=== PATIENT | female | born 1965 | race Caucasian/White ===

== ENCOUNTER 2016-09-22 15:51 | Emergency (ER) | payer OTHER ==
[~2016-09-22] VITALS: Ht 152.4 cm; Wt 77.1 kg
[2016-09-22 17:51] LABS: EOSINOPHIL (%) 0.2 % (0-5); HEMATOCRIT 37.1 % (36.0-46.0); IMMATURE GRANULOCYTE (%) 0.5 % (0.0-0.7); IMMATURE GRANULOCYTE COUNT 0.1 K/uL; INSTRUMENT ABS NEUTROPHIL CT 9.7 K/uL; LYMPHOCYTE COUNT 1.9 K/uL (1.0-2.8); MCH 32.7 PG (29.0-34.0); MCHC 34.5 G/DL (30.0-36.0); MCV 94.6 FL (83-99); MEAN PLAT.VOLUME 11.4 uM^3 (9.5-12.4); MONOCYTE (%) 8.7 % (3-12); MONOCYTE COUNT 1.1 K/uL (0-0.8); NEUTROPHIL (%) 75.5 % (45-76); NEUTROPHIL COUNT 9.7 K/uL (1.8-6.4); PLATELET COUNT 206 K/uL (156-360); RBC DIS.WIDTH-CV 12.5 % (11.8-14.6); RBC DIS.WIDTH-SD 43.6 % (39-53); RED BLOOD COUNT 3.92 M/uL (3.80-5.20); WHITE BLOOD COUNT 12.8 K/uL (4.1-10.2)
[2016-09-22 17:57] LABS: CHLORIDE 108 mEq/L (99-109); POTASSIUM 3.6 mEq/L (3.7-5.4); SODIUM 143 mEq/L (136-147)
[2016-09-22 17:58] LABS: GLUCOSE 89 mg/dL (70-99)
[2016-09-22 18:00] LABS: ANION GAP 11 MEQ/L (2-14)
[2016-09-22 18:02] LABS: GFR ESTIMATE (CALCULATED) > 59 mL/min/; SERUM ETHYL ALCOHOL < 10 mg/dL
[2016-09-22 18:03] LABS: UREA NITROGEN (BUN) 11 mg/dL (9-23)
[2016-09-22 18:11] LABS: TROP-I INTERPRETATION NEGATIVE; TROPONIN-I < 0.01 ng/mL (0.0-0.30)
[2016-09-22 19:40] LABS: ADD MIUA? YES; BILIRUBIN SMALL; BLOOD MODERATE; COLOR AMBER ((YELLOW)); GLUCOSE (STRIP) NEGATIVE; KETONES NEGATIVE; LEUKOCYTES SMALL; NITRITE NEGATIVE; PROTEIN (STRIP) 100; SPECIFIC GRAVITY 1.024 (1.000-1.030)
[2016-09-22] MEDS ORDERED: PROZAC20 MG PO ×2 (19:41)
[2016-09-22] MEDS ORDERED: TEGRETOL100 MG PO (19:41)
[2016-09-22] MEDS ORDERED: XANAX2 MG PO (19:41)
[2016-09-22] MEDS ORDERED: SEROQUEL200 MG PO (19:42)
[2016-09-22] MEDS ORDERED: PROVENTIL HFA6.7 GM IH (19:42)
[2016-09-22] MEDS ORDERED: PROVENTIL,2.5 MG/3 M IH (19:43)
[2016-09-22 19:52] LABS: ADD MEDTOX COMMENT Y; AMPHETAMINE NEGATIVE (500 ng/mL); BARBITURATES NEGATIVE (200 ng/mL); BENZODIAZEPINES PRESUMPTIVE POSITIVE (150 ng/mL); COCAINE NEGATIVE (150 ng/mL); INTERNAL CONTROLS VALID? YES; METHADONE NEGATIVE (200 ng/mL); METHAMPHETAMINE NEGATIVE (500 ng/mL); OPIATES (MORPHINE) NEGATIVE (100 ng/mL); OXYCODONE NEGATIVE (100 ng/mL); PHENCYCLIDINE NEGATIVE (25 ng/mL); PROPOXYPHENE NEGATIVE (300 ng/mL); THC CANNABINOIDS PRESUMPTIVE POSITIVE (50 ng/mL); TRICYCLIC ANTIDEPRESSANTS NEGATIVE (300 ng/mL)
[2016-09-22 20:16] LABS: CASTS NONE SEEN /LPF; CRYSTALS PRESENT; MUCUS TRACE /LPF; UCUL ADDED? YES; WHITE BLOOD CELLS 20-30 /HPF (0-5)
[2016-09-22 20:17] LABS: AMORPHOUS URATES CRYSTALS 2+; BACTERIA 2+ /HPF; EPITHELIAL CELLS 2+ /HPF
[2016-09-22 20:23] LABS: BENZODIAZEPINES QUANT VALUE 0 NG/ML; BENZODIAZEPINES, URINE SCREEN Negative (200 ng/mL)
[2016-09-22] MEDS ORDERED: KEFLEX500 MG PO (22:59)
[2016-09-23 08:00] VITALS: BP 131/50
== END 2016-09-23 08:00 ==
LOC: EME 15:51
PROVIDERS: Emergency Medicine
DX: F33.2 Major depressive disorder, recurrent severe without psychotic features (principal); R45.851 Suicidal ideations; R07.9 Chest pain, unspecified; F41.9 Anxiety disorder, unspecified; I10 Essential (primary) hypertension; J44.9 Chronic obstructive pulmonary disease, unspecified; F17.200 Nicotine dependence, unspecified, uncomplicated; Z88.0 Allergy status to penicillin
CPT/HCPCS: 80048; 81003; 84484; 84999; 85025; 87077; 87086; 87186; 90837; 93005; 99281; 99285; G0480; J7030

== ENCOUNTER 2016-10-13 16:34 | Inpatient (IN) | payer OTHER ==
[~2016-10-13] VITALS: Ht 152.4 cm; Wt 74.0 kg
[~2016-10-13 16:34] MED LIST: KEFLEX500 MG PO; PROVENTIL HFA6.7 GM IH; PROVENTIL,2.5 MG/3 M IH; PROZAC20 MG PO; SEROQUEL200 MG PO; TEGRETOL100 MG PO; XANAX2 MG PO
[2016-10-13] MEDS ORDERED: CARBAMAZEPINE100 M1 PO (17:31)
[2016-10-13] MEDS ORDERED: GABAPENTIN400 MG PO (17:31)
[2016-10-13] MEDS ORDERED: XANAX1 MG PO (17:32)
[2016-10-13] MEDS ORDERED: LEVOTHYROXINE75 MCG PO (17:32)
[2016-10-13] MEDS ORDERED: SEROQUEL300 MG PO (17:33)
[2016-10-13] MEDS ORDERED: FLUOXETINE HCL40 MG PO (17:35)
[2016-10-13 17:48] LABS: HEMATOCRIT 35.1 % (36.0-46.0); MCH 33.1 PG (29.0-34.0); MCHC 33.3 G/DL (30.0-36.0); MCV 99.2 FL (83-99); MEAN PLAT.VOLUME 11.1 uM^3 (9.5-12.4); PLATELET COUNT 211 K/uL (156-360); RBC DIS.WIDTH-CV 12.9 % (11.8-14.6); RBC DIS.WIDTH-SD 46.4 % (39-53); RED BLOOD COUNT 3.54 M/uL (3.80-5.20); WHITE BLOOD COUNT 10.2 K/uL (4.1-10.2)
[2016-10-13 18:06] LABS: TROP-I INTERPRETATION NEGATIVE; TROPONIN-I < 0.01 ng/mL (0.0-0.30)
[2016-10-13 18:23] LABS: CHLORIDE 105 mEq/L (99-109); POTASSIUM 3.3 mEq/L (3.7-5.4); SODIUM 141 mEq/L (136-147)
[2016-10-13 18:25] LABS: GLUCOSE 103 mg/dL (70-99)
[2016-10-13 18:26] LABS: ANION GAP 15 MEQ/L (2-14)
[2016-10-13 18:28] LABS: GFR ESTIMATE (CALCULATED) > 59 mL/min/
[2016-10-13 18:29] LABS: UREA NITROGEN (BUN) 10 mg/dL (9-23)
[2016-10-13 19:48] LABS: ADD MIUA? YES; BILIRUBIN SMALL; BLOOD MODERATE; COLOR AMBER ((YELLOW)); GLUCOSE (STRIP) NEGATIVE; KETONES 5; LEUKOCYTES MODERATE; NITRITE NEGATIVE; PROTEIN (STRIP) 100; SPECIFIC GRAVITY 1.026 (1.000-1.030)
[2016-10-13 19:56] LABS: ADD MEDTOX COMMENT Y; AMPHETAMINE NEGATIVE (500 ng/mL); BARBITURATES NEGATIVE (200 ng/mL); BENZODIAZEPINES PRESUMPTIVE POSITIVE (150 ng/mL); COCAINE NEGATIVE (150 ng/mL); INTERNAL CONTROLS VALID? YES; METHADONE NEGATIVE (200 ng/mL); METHAMPHETAMINE NEGATIVE (500 ng/mL); OPIATES (MORPHINE) NEGATIVE (100 ng/mL); OXYCODONE NEGATIVE (100 ng/mL); PHENCYCLIDINE NEGATIVE (25 ng/mL); PROPOXYPHENE NEGATIVE (300 ng/mL); THC CANNABINOIDS PRESUMPTIVE POSITIVE (50 ng/mL); TRICYCLIC ANTIDEPRESSANTS PRESUMPTIVE POSITIVE (300 ng/mL)
[2016-10-13 20:06] LABS: BACTERIA 2+ /HPF; CASTS PRESENT /LPF; MUCUS 1+ /LPF; RED BLOOD CELLS 15-20 /HPF (0-5); UCUL ADDED? YES
[2016-10-13 20:07] LABS: EPITHELIAL CELLS 2+ /HPF
[2016-10-13 20:29] LABS: BENZODIAZEPINES, URINE SCREEN POSITIVE (200 ng/mL)
[2016-10-13 21:56] VITALS: BP 101/63
[2016-10-14 03:05] VITALS: BP 110/71
[2016-10-14 06:11] LABS: MCH 32.2 PG (29.0-34.0); MCHC 32.7 G/DL (30.0-36.0); MCV 98.5 FL (83-99); MEAN PLAT.VOLUME 11.2 uM^3 (9.5-12.4); PLATELET COUNT 215 K/uL (156-360); RBC DIS.WIDTH-CV 12.9 % (11.8-14.6); RBC DIS.WIDTH-SD 46.3 % (39-53); RED BLOOD COUNT 3.35 M/uL (3.80-5.20); WHITE BLOOD COUNT 6.1 K/uL (4.1-10.2)
[2016-10-14 06:37] LABS: ANION GAP 8 MEQ/L (2-14); CHLORIDE 106 MEQ/L (99-109); GFR ESTIMATE (CALCULATED) > 59 mL/min/; SAMPLE HEMOLYSIS CHECK 0; SAMPLE ICTERIC CHECK 0; SAMPLE LIPEMIA CHECK 0; SODIUM 138 MEQ/L (136-147); UREA NITROGEN (BUN) 11 mg/dL (9-23)
[2016-10-14 06:39] LABS: GLUCOSE 216 mg/dL (70-99)
[2016-10-14 07:30] VITALS: BP 96/63
[2016-10-14] MEDS ORDERED: CEFTIN500 MG PO (12:48)
[2016-10-14] MEDS ORDERED: AZITHROMYCIN500 M1 PO (12:48)
[2016-10-14] MEDS ORDERED: PREDNISONE10 MG PO (12:50)
[2016-10-14] MEDS ORDERED: DUONEB 2.5-0.5 M3 ML AEROSOL (12:50)
[2016-10-14] MEDS ORDERED: SPIRIVA1 INHALATI IH (19:31)
== END 2016-10-14 18:14 | DRG 190 ==
LOC: EME 16:34 → EDOF 20:41 → ENRESERV 20:44 → 5SOUTH 21:55
PROVIDERS: Emergency Medicine; Hospitalist
DX: J44.0 Chronic obstructive pulmonary disease with (acute) lower respiratory infection (principal); J18.9 Pneumonia, unspecified organism; N39.0 Urinary tract infection, site not specified; F33.9 Major depressive disorder, recurrent, unspecified; R45.851 Suicidal ideations; I10 Essential (primary) hypertension; J44.1 Chronic obstructive pulmonary disease with (acute) exacerbation; R09.02 Hypoxemia; F43.10 Post-traumatic stress disorder, unspecified; G40.909 Epilepsy, unspecified, not intractable, without status epilepticus; F17.210 Nicotine dependence, cigarettes, uncomplicated; Z59.0 Homelessness; Z91.5 Personal history of self-harm; Z87.01 Personal history of pneumonia (recurrent); Z88.0 Allergy status to penicillin; Z88.5 Allergy status to narcotic agent
CPT/HCPCS: 71020; 71275; 80048; 81003; 84484; 84999; 85027; 87040; 87086; 87186; 90732; 90839; 93005; 94640; 94640 76; 94799; 99202; 99281; 99285; G0009; J0456; J0696; J1650; J2930; J7050; J7512; J7644

== ENCOUNTER 2016-10-14 18:00 | Inpatient (IN) | payer OTHER ==
[~2016-10-14] VITALS: Ht 152.4 cm; Wt 74.0 kg
[~2016-10-14 18:00] MED LIST changes: +AZITHROMYCIN500 M1 PO; +CARBAMAZEPINE100 M1 PO; +CEFTIN500 MG PO; +DUONEB 2.5-0.5 M3 ML AEROSOL; +FLUOXETINE HCL40 MG PO; +GABAPENTIN400 MG PO; +LEVOTHYROXINE75 MCG PO; +PREDNISONE10 MG PO; +SEROQUEL300 MG PO; +XANAX1 MG PO
[2016-10-14 18:29] VITALS: BP 106/63
[2016-10-14] MEDS ORDERED: SPIRIVA1 INHALATI IH (19:31)
[2016-10-15 07:36] VITALS: BP 113/56
[2016-10-15 15:59] VITALS: BP 108/77
[2016-10-16 07:34] VITALS: BP 138/61
[2016-10-16 15:42] VITALS: BP 130/70
[2016-10-17 07:24] VITALS: BP 140/77
[2016-10-17] MEDS ORDERED: QUETIAPINE FUM200 MG PO (10:01)
[2016-10-17] MEDS ORDERED: ALPRAZOLAM0.5 MG PO (10:01)
[2016-10-17] MEDS ORDERED: CEFTIN500 MG PO (10:01)
[2016-10-17] MEDS ORDERED: FLUOXETINE HCL20 MG PO ×2 (10:01)
[2016-10-17] MEDS ORDERED: AZITHROMYCIN500 M1 PO (10:01)
[2016-10-17] MEDS ORDERED: GABAPENTIN100 MG PO (10:01)
[2016-10-17] MEDS ORDERED: LEVOTHYROXINE75 MCG PO (10:03)
[2016-10-17] MEDS ORDERED: PREDNISONE10 MG PO (10:03)
== END 2016-10-17 10:59 | disposition home or self-care (01) | DRG 885 ==
LOC: 1WEST 18:00 → ENRESERV 18:03 → 1WEST 18:26
DX: F33.1 Major depressive disorder, recurrent, moderate (principal); R45.851 Suicidal ideations; J44.0 Chronic obstructive pulmonary disease with (acute) lower respiratory infection; J18.9 Pneumonia, unspecified organism; N39.0 Urinary tract infection, site not specified; F43.10 Post-traumatic stress disorder, unspecified; F12.10 Cannabis abuse, uncomplicated; F90.9 Attention-deficit hyperactivity disorder, unspecified type; Z59.0 Homelessness; G40.909 Epilepsy, unspecified, not intractable, without status epilepticus; E03.9 Hypothyroidism, unspecified; I10 Essential (primary) hypertension; F17.200 Nicotine dependence, unspecified, uncomplicated; Z91.410 Personal history of adult physical and sexual abuse; Z62.810 Personal history of physical and sexual abuse in childhood
CPT/HCPCS: 94640; 94640 76; J7512

== ENCOUNTER 2016-10-30 16:50 | Inpatient (IN) | payer OTHER ==
[~2016-10-30] VITALS: Ht 152.4 cm; Wt 78.4 kg
[~2016-10-30 16:50] MED LIST changes: +ALPRAZOLAM0.5 MG PO; +FLUOXETINE HCL20 MG PO; +GABAPENTIN100 MG PO; +QUETIAPINE FUM200 MG PO; +SPIRIVA1 INHALATI IH
[2016-10-30 17:15] LABS: HEMATOCRIT 37.6 % (36.0-46.0); MCH 31.9 PG (29.0-34.0); MCHC 32.7 G/DL (30.0-36.0); MCV 97.7 FL (83-99); MEAN PLAT.VOLUME 10.7 uM^3 (9.5-12.4); PLATELET COUNT 184 K/uL (156-360); RBC DIS.WIDTH-CV 13.3 % (11.8-14.6); RBC DIS.WIDTH-SD 47.8 % (39-53); RED BLOOD COUNT 3.85 M/uL (3.80-5.20); WHITE BLOOD COUNT 7.5 K/uL (4.1-10.2)
[2016-10-30 17:23] LABS: CHLORIDE 109 mEq/L (99-109); POTASSIUM 3.6 mEq/L (3.7-5.4); SODIUM 143 mEq/L (136-147)
[2016-10-30 17:25] LABS: GLUCOSE 115 mg/dL (70-99)
[2016-10-30 17:27] LABS: ANION GAP 13 MEQ/L (2-14)
[2016-10-30 17:29] LABS: GFR ESTIMATE (CALCULATED) > 59 mL/min/
[2016-10-30 17:30] LABS: UREA NITROGEN (BUN) 13 mg/dL (9-23)
[2016-10-30 17:35] LABS: TROP-I INTERPRETATION NEGATIVE; TROPONIN-I < 0.01 ng/mL (0.0-0.30)
[2016-10-30 17:37] LABS: QUANTITATIVE HCG < 4.0 MIU/ML
[2016-10-30 17:59] LABS: ADD MIUA? YES; BILIRUBIN NEGATIVE; BLOOD MODERATE; COLOR YELLOW ((YELLOW)); GLUCOSE (STRIP) NEGATIVE; KETONES NEGATIVE; LEUKOCYTES MODERATE; NITRITE NEGATIVE; PROTEIN (STRIP) NEGATIVE; SPECIFIC GRAVITY 1.021 (1.000-1.030); UROBILINOGEN 0.2 MG/DL (0.2-1.0)
[2016-10-30 18:03] LABS: BACTERIA RARE /HPF; EPITHELIAL CELLS 1+ /HPF; HYALINE CASTS 0-5 /LPF; MUCUS TRACE /LPF; UCUL ADDED? YES
[2016-10-30] MEDS ORDERED: XANAX XR1 MG PO (21:57)
[2016-10-31] VITALS (10 sets, daily range): BP systolic 98–122; BP diastolic 51–76
[2016-10-31 00:08] LABS: TROP-I INTERPRETATION NEGATIVE; TROPONIN-I < 0.01 ng/mL (0.0-0.30)
[2016-10-31 06:25] LABS: HEMATOCRIT 38.6 % (36.0-46.0); MCH 31.8 PG (29.0-34.0); MCHC 32.9 G/DL (30.0-36.0); MCV 96.7 FL (83-99); MEAN PLAT.VOLUME 11.1 uM^3 (9.5-12.4); PLATELET COUNT 199 K/uL (156-360); RBC DIS.WIDTH-SD 46.7 % (39-53); RED BLOOD COUNT 3.99 M/uL (3.80-5.20); WHITE BLOOD COUNT 6.9 K/uL (4.1-10.2)
[2016-10-31 06:40] LABS: CHLORIDE 110 mEq/L (99-109); SODIUM 141 mEq/L (136-147)
[2016-10-31 06:42] LABS: GLUCOSE 149 mg/dL (70-99)
[2016-10-31 06:44] LABS: ANION GAP 11 MEQ/L (2-14); POTASSIUM 4.6 mEq/L (3.7-5.4); TOTAL BILIRUBIN 0.1 mg/dL (0.0-1.0)
[2016-10-31 06:45] LABS: TROP-I INTERPRETATION NEGATIVE; TROPONIN-I < 0.01 ng/mL (0.0-0.30)
[2016-10-31 06:46] LABS: ALKALINE PHOSPHATASE 77 IU/L (3-129); GFR ESTIMATE (CALCULATED) > 59 mL/min/
[2016-10-31 06:47] LABS: UREA NITROGEN (BUN) 12 mg/dL (9-23)
[2016-10-31 08:50] LABS: INTERNAL CONTROL VALID? YES
[2016-11-01 07:18] VITALS: BP 108/67
[2016-11-01] MEDS ORDERED: GABAPENTIN100 MG PO (11:13)
[2016-11-01] MEDS ORDERED: LEVOTHYROXINE75 MCG PO (11:13)
[2016-11-01] MEDS ORDERED: PROVENTIL,2.5 MG/3 M IH (11:13)
[2016-11-01] MEDS ORDERED: CARBAMAZEPINE100 M1 PO (11:13)
[2016-11-01] MEDS ORDERED: CEFDINIR300 MG PO (11:13)
[2016-11-01] MEDS ORDERED: SPIRIVA1 INHALATI IH (11:13)
[2016-11-01] MEDS ORDERED: PREDNISONE10 MG PO (11:13)
[2016-11-01] MEDS ORDERED: FLUOXETINE HCL20 MG PO ×2 (11:21)
[2016-11-01] MEDS ORDERED: XANAX XR1 MG PO (11:21)
[2016-11-01] MEDS ORDERED: QUETIAPINE FUM200 MG PO (11:21)
[2016-11-01 11:34] VITALS: BP 103/58
[2016-11-01] MEDS ORDERED: INCRUSE ELLI62.5 MCG IH (12:56)
[2016-11-01] MEDS ORDERED: PROAIR HFA8.5 GM IH (12:56)
[2016-11-01 15:39] VITALS: BP 107/55
== END 2016-11-01 17:00 | disposition home or self-care (01) | DRG 190 ==
LOC: EME 16:50 → EDOF 20:39 → ENRESERV 20:51 → EDOF 10-31 09:23 → ENRESERV 10-31 09:25 → 5EAST 10-31 13:50 → ENPENDDIS 11-01 → 5EAST 11-01 17:00
PROVIDERS: Emergency Medicine; Internal Medicine
DX: J44.0 Chronic obstructive pulmonary disease with (acute) lower respiratory infection (principal); J18.9 Pneumonia, unspecified organism; J44.1 Chronic obstructive pulmonary disease with (acute) exacerbation; E87.6 Hypokalemia; I10 Essential (primary) hypertension; F31.9 Bipolar disorder, unspecified; F41.9 Anxiety disorder, unspecified; E03.9 Hypothyroidism, unspecified; F17.210 Nicotine dependence, cigarettes, uncomplicated; Z23 Encounter for immunization; Z88.0 Allergy status to penicillin; Z88.5 Allergy status to narcotic agent
CPT/HCPCS: 71010; 80048; 80053; 81003; 83605; 84484; 84702; 85027; 85379; 87040; 87086; 87449; 90686; 93005; 94640; 94640 76; 99202; 99281; 99285; J0456; J0696; J1100; J1644; J2930; J7050; J7644

== ENCOUNTER 2016-11-22 16:25 | Observation (INO) | payer OTHER ==
[~2016-11-22] VITALS: Ht 152.4 cm; Wt 78.4 kg
[~2016-11-22 16:25] MED LIST changes: +CEFDINIR300 MG PO; +INCRUSE ELLI62.5 MCG IH; +PROAIR HFA8.5 GM IH; +XANAX XR1 MG PO
[2016-11-22 17:15] LABS: MCH 32.4 PG (29.0-34.0); MCV 98.1 FL (83-99); MEAN PLAT.VOLUME 11.1 uM^3 (9.5-12.4); PLATELET COUNT 185 K/uL (156-360); RBC DIS.WIDTH-CV 14.3 % (11.8-14.6); RBC DIS.WIDTH-SD 52.2 % (39-53); RED BLOOD COUNT 3.77 M/uL (3.80-5.20)
[2016-11-22 17:21] LABS: INTER. NORMALIZED RATIO 0.9; PROTHROMBIN TIME 10.1 SEC (10.2-12.9)
[2016-11-22 17:23] LABS: PTT 27.4 SEC (25-37)
[2016-11-22 17:28] LABS: CHLORIDE 108 mEq/L (99-109); SODIUM 143 mEq/L (136-147)
[2016-11-22 17:30] LABS: GLUCOSE 62 mg/dL (70-99)
[2016-11-22 17:31] LABS: ANION GAP 10 MEQ/L (2-14)
[2016-11-22 17:34] LABS: GFR ESTIMATE (CALCULATED) > 59 mL/min/
[2016-11-22 17:35] LABS: UREA NITROGEN (BUN) 14 mg/dL (9-23)
[2016-11-22 17:40] LABS: TROP-I INTERPRETATION NEGATIVE; TROPONIN-I < 0.01 ng/mL (0.0-0.30)
[2016-11-22] MEDS ORDERED: INCRUSE ELLI62.5 MCG IH (20:13)
[2016-11-22] MEDS ORDERED: GABAPENTIN100 MG PO (20:15)
[2016-11-22] MEDS ORDERED: GABAPENTIN400 MG PO (20:16)
[2016-11-22] MEDS ORDERED: FLUOXETINE HCL40 MG PO (20:17)
[2016-11-22] MEDS ORDERED: SEROQUEL300 MG PO (20:18)
[2016-11-22] MEDS ORDERED: ACID REDUCER 1150 MG PO (20:21)
[2016-11-22] MEDS ORDERED: ATARAX,VISTARIL25 MG PO (20:21)
[2016-11-22] MEDS ORDERED: PREDNISONE50 MG PO (20:21)
[2016-11-22] MEDS ORDERED: BAYER BACK & B1 EACH PO (20:22)
[2016-11-22] MEDS ORDERED: XANAX XR3 MG PO (20:23)
[2016-11-22 21:38] LABS: POINT-OF-CARE METER ID UU13113702
[2016-11-22 22:13] LABS: HDL CHOLESTEROL 90 MG/DL (Desirable>=50); LDL CHOLESTEROL 118 mg/dL (Desirable<100); NON-HDL CHOLESTEROL 139 mg/dL (Desirable<160); TOTAL CHOLESTEROL 229 mg/dL (Desirable<200); TRIGLYCERIDES 103 MG/DL (Normal: <150)
[2016-11-22 22:45] LABS: SERUM ETHYL ALCOHOL < 10 mg/dL
[2016-11-23 00:08] VITALS: BP 121/83; BP 99/54
[2016-11-23 03:54] VITALS: BP 120/69
[2016-11-23 07:39] VITALS: BP 126/75
[2016-11-23] MEDS ORDERED: SPIRIVA RESPIMAT4 GM IH (10:57)
[2016-11-23] MEDS ORDERED: PREDNISONE10 MG PO ×2 (10:57→10:59)
[2016-11-23] MEDS ORDERED: ALLERGY25 M2 PO (10:57)
[2016-11-23] MEDS ORDERED: PEPCID40 MG PO (10:57)
== END 2016-11-23 13:05 | disposition home or self-care (01) ==
LOC: EME 16:25 → 5SOUTH 21:16 → EDOF 21:16 → ENRESERV 21:20 → EDOF 22:01 → 5SOUTH 23:19
PROVIDERS: Emergency Medicine; Hospitalist
DX: T78.3XXA Angioneurotic edema, initial encounter (principal); R20.0 Anesthesia of skin; J44.9 Chronic obstructive pulmonary disease, unspecified; F10.11 Alcohol abuse, in remission; F19.11 Other psychoactive substance abuse, in remission; E03.9 Hypothyroidism, unspecified; F32.9 Major depressive disorder, single episode, unspecified; F41.9 Anxiety disorder, unspecified; Z86.69 Personal history of other diseases of the nervous system and sense organs; F17.200 Nicotine dependence, unspecified, uncomplicated; Z82.3 Family history of stroke; Z88.5 Allergy status to narcotic agent; Z88.0 Allergy status to penicillin
CPT/HCPCS: 70450; 70551; 71010; 80048; 80061; 80306 90; 81003; 82948; 83036; 84484; 85027; 85610; 85730; 93005; 94640; 99202; 99281; 99285; G0378; G0480; J1200; J1650; J2930; S0028

== ENCOUNTER 2017-02-04 00:42 | Emergency (ER) | payer OTHER ==
[~2017-02-04] VITALS: Ht 152.4 cm; Wt 75.2 kg
[~2017-02-04 00:42] MED LIST changes: +ACID REDUCER 1150 MG PO; +ALLERGY25 M2 PO; +ATARAX,VISTARIL25 MG PO; +BAYER BACK & B1 EACH PO; +PEPCID40 MG PO; +PREDNISONE50 MG PO; +SPIRIVA RESPIMAT4 GM IH; +XANAX XR3 MG PO
[2017-02-04] MEDS ORDERED: ERYTHROMYC1 APPLICAT LEFT EYE (01:38)
[2017-02-04 01:46] VITALS: BP 121/70
== END 2017-02-04 01:47 ==
LOC: EME → EDBD 00:42 → EME 01:47
DX: S05.02XA Injury of conjunctiva and corneal abrasion without foreign body, left eye, initial encounter (principal); X58.XXXA Exposure to other specified factors, initial encounter; Z88.0 Allergy status to penicillin; Z88.5 Allergy status to narcotic agent
CPT/HCPCS: 99281; 99283

== ENCOUNTER 2017-02-14 12:42 | Inpatient (IN) | payer OTHER ==
[~2017-02-14] VITALS: Ht 152.4 cm; Wt 75.0 kg
[~2017-02-14 12:42] MED LIST changes: +ERYTHROMYC1 APPLICAT LEFT EYE
[2017-02-14 14:45] LABS: BASOPHIL (%) 0.3 % (0-1); EOSINOPHIL (%) 0.8 % (0-5); EOSINOPHIL COUNT 0.1 K/uL (0-0.3); HEMATOCRIT 37.3 % (36.0-46.0); HEMOGLOBIN 12.9 G/DL (11.9-15.5); IMMATURE GRANULOCYTE (%) 0.3 % (0.0-0.7); LYMPHOCYTE (%) 12.5 % (15-42); LYMPHOCYTE COUNT 1.8 K/uL (1.0-2.8); MCH 32.3 PG (29.0-34.0); MCHC 34.6 G/DL (30.0-36.0); MCV 93.5 FL (83-99); MONOCYTE (%) 10.7 % (3-12); MONOCYTE COUNT 1.5 K/uL (0-0.8); NEUTROPHIL (%) 75.4 % (45-76); NEUTROPHIL COUNT 10.5 K/uL (1.8-6.4); PLATELET COUNT 185 K/uL (156-360); RBC DIS.WIDTH-SD 41.4 % (39-53); RED BLOOD COUNT 3.99 M/uL (3.80-5.20)
[2017-02-14 14:53] LABS: CHLORIDE 102 mEq/L (99-109); POTASSIUM 3.6 mEq/L (3.7-5.4); SODIUM 138 mEq/L (136-147)
[2017-02-14 14:55] LABS: GLUCOSE 81 mg/dL (70-99)
[2017-02-14 14:58] LABS: CREATININE 0.8 mg/dL (0.6-1.3); GFR ESTIMATE (CALCULATED) > 59 mL/min/
[2017-02-14 14:59] LABS: UREA NITROGEN (BUN) 16 mg/dL (9-23)
[2017-02-14] MEDS ORDERED: CARBAMAZEPINE100 MG PO (17:22)
[2017-02-14] MEDS ORDERED: ADVIL,NUPRIN,M200 MG PO (17:23)
[2017-02-14] MEDS ORDERED: TUMS ULTRA1000 MG PO (17:23)
[2017-02-14] MEDS ORDERED: SYNTHROID75 MCG PO (17:23)
[2017-02-14] MEDS ORDERED: BACTRIM,SEPT1 TABLET PO (17:24)
[2017-02-14] MEDS ORDERED: FLUOXETINE HCL20 MG PO (17:24)
[2017-02-14 19:53] VITALS: BP 98/59
[2017-02-15] VITALS (8 sets, daily range): BP systolic 84–128; BP diastolic 44–74
[2017-02-15 05:19] LABS: HEMATOCRIT 30.6 % (36.0-46.0); MCH 31.4 PG (29.0-34.0); MCHC 32.7 G/DL (30.0-36.0); MCV 96.2 FL (83-99); PLATELET COUNT 155 K/uL (156-360); RBC DIS.WIDTH-CV 12.4 % (11.8-14.6); RBC DIS.WIDTH-SD 43.9 % (39-53); WHITE BLOOD COUNT 11.4 K/uL (4.1-10.2)
[2017-02-15 05:22] LABS: RED BLOOD COUNT 3.18 M/uL (3.80-5.20)
[2017-02-15 05:43] LABS: CHLORIDE 113 MEQ/L (99-109); GFR ESTIMATE (CALCULATED) > 59 mL/min/; GLUCOSE 89 mg/dL (70-99); POTASSIUM 4.2 MEQ/L (3.7-5.4); SODIUM 141 MEQ/L (136-147); UREA NITROGEN (BUN) 16 mg/dL (9-23)
[2017-02-15 21:00] LABS: STOOL OCCULT BLD 1ST SPECIMEN NEGATIVE
[2017-02-16 00:07] VITALS: BP 102/58
[2017-02-16 03:43] VITALS: BP 110/64
[2017-02-16 05:31] LABS: BASOPHIL (%) 0.4 % (0-1); EOSINOPHIL (%) 2.4 % (0-5); EOSINOPHIL COUNT 0.2 K/uL (0-0.3); HEMATOCRIT 28.9 % (36.0-46.0); HEMOGLOBIN 9.4 G/DL (11.9-15.5); IMMATURE GRANULOCYTE (%) 0.8 % (0.0-0.7); LYMPHOCYTE (%) 24.4 % (15-42); MCH 31.3 PG (29.0-34.0); MCHC 32.5 G/DL (30.0-36.0); MCV 96.3 FL (83-99); MONOCYTE (%) 13.6 % (3-12); MONOCYTE COUNT 1.1 K/uL (0-0.8); NEUTROPHIL (%) 58.4 % (45-76); NEUTROPHIL COUNT 4.7 K/uL (1.8-6.4); PLATELET COUNT 176 K/uL (156-360); RBC DIS.WIDTH-CV 12.6 % (11.8-14.6); RBC DIS.WIDTH-SD 44.4 % (39-53)
[2017-02-16 06:09] LABS: CHLORIDE 116 MEQ/L (99-109); CREATININE 1.2 MG/DL (0.6-1.3); GFR ESTIMATE (CALCULATED) 50 mL/min/; GLUCOSE 86 mg/dL (70-99); POTASSIUM 4.2 MEQ/L (3.7-5.4); SODIUM 144 MEQ/L (136-147); UREA NITROGEN (BUN) 12 mg/dL (9-23)
[2017-02-16 08:00] VITALS: BP 127/63
[2017-02-16 15:43] VITALS: BP 123/72
[2017-02-17] VITALS: BP 100/62
[2017-02-17 07:00] LABS: VANCOMYCIN, TROUGH 17.5 MCG/ML (10-20)
[2017-02-17 07:23] LABS: HEMATOCRIT 33.8 % (36.0-46.0); HEMOGLOBIN 10.8 G/DL (11.9-15.5); MCH 31.4 PG (29.0-34.0); MCV 98.3 FL (83-99); PLATELET COUNT 198 K/uL (156-360); RBC DIS.WIDTH-CV 12.5 % (11.8-14.6); RBC DIS.WIDTH-SD 45.1 % (39-53); RED BLOOD COUNT 3.44 M/uL (3.80-5.20); WHITE BLOOD COUNT 9.4 K/uL (4.1-10.2)
[2017-02-17 07:35] LABS: CHLORIDE 114 MEQ/L (99-109); CREATININE 1.1 MG/DL (0.6-1.3); GFR ESTIMATE (CALCULATED) 55 mL/min/; GLUCOSE 84 mg/dL (70-99); POTASSIUM 3.8 MEQ/L (3.7-5.4); SODIUM 142 MEQ/L (136-147); UREA NITROGEN (BUN) 13 mg/dL (9-23)
[2017-02-17 07:38] VITALS: BP 127/68
[2017-02-17 23:22] VITALS: BP 124/69
[2017-02-18 06:40] LABS: BASOPHIL (%) 0.3 % (0-1); EOSINOPHIL (%) 1.7 % (0-5); EOSINOPHIL COUNT 0.2 K/uL (0-0.3); HEMATOCRIT 29.5 % (36.0-46.0); HEMOGLOBIN 9.8 G/DL (11.9-15.5); LYMPHOCYTE COUNT 1.3 K/uL (1.0-2.8); MCH 31.9 PG (29.0-34.0); MCHC 33.2 G/DL (30.0-36.0); MCV 96.1 FL (83-99); NEUTROPHIL COUNT 6.7 K/uL (1.8-6.4); PLATELET COUNT 208 K/uL (156-360); RBC DIS.WIDTH-CV 12.6 % (11.8-14.6); RBC DIS.WIDTH-SD 44.3 % (39-53); RED BLOOD COUNT 3.07 M/uL (3.80-5.20); WHITE BLOOD COUNT 9.3 K/uL (4.1-10.2)
[2017-02-18 07:00] VITALS: BP 130/70
[2017-02-18 07:06] LABS: CHLORIDE 114 MEQ/L (99-109); CREATININE 1.2 MG/DL (0.6-1.3); GFR ESTIMATE (CALCULATED) 50 mL/min/; GLUCOSE 87 mg/dL (70-99); POTASSIUM 4.2 MEQ/L (3.7-5.4); SODIUM 144 MEQ/L (136-147); UREA NITROGEN (BUN) 11 mg/dL (9-23); VANCOMYCIN, TROUGH 15.9 MCG/ML (10-20)
[2017-02-18] MEDS ORDERED: BACTRIM,SEPT1 TABLET PO (11:34)
== END 2017-02-18 13:27 | DRG 602 ==
LOC: EME 12:42 → EDOF 15:18 → 5SOUTH 15:18 → ENRESERV 15:23 → 5SOUTH 19:26
PROVIDERS: Emergency Medicine; Hospitalist; Internal Medicine
PROC: 0H9BXZZ Drainage of Right Upper Arm Skin, External Approach (ICD-10-PCS; principal; 2017-02-14)
DX: L02.411 Cutaneous abscess of right axilla (principal); J18.9 Pneumonia, unspecified organism; D64.9 Anemia, unspecified; D69.59 Other secondary thrombocytopenia; E83.51 Hypocalcemia; R64 Cachexia; R59.1 Generalized enlarged lymph nodes; F32.9 Major depressive disorder, single episode, unspecified; E03.9 Hypothyroidism, unspecified; F41.9 Anxiety disorder, unspecified; G40.909 Epilepsy, unspecified, not intractable, without status epilepticus; Z87.891 Personal history of nicotine dependence; Z22.322 Carrier or suspected carrier of Methicillin resistant Staphylococcus aureus; Z68.32 Body mass index [BMI] 32.0-32.9, adult
CPT/HCPCS: 80048; 80202; 82272; 83605; 85025; 85027; 87040; 87070; 87075; 87205; 87641; 99281; 99285; J0456; J1650; J1885; J2060; J2270; J2405; J2543; J3370; J7030; J7050

== ENCOUNTER 2017-03-15 00:04 | Inpatient (IN) | payer OTHER ==
[~2017-03-15] VITALS: Ht 152.4 cm; Wt 75.2 kg
[~2017-03-15 00:04] MED LIST changes: +ADVIL,NUPRIN,M200 MG PO; +BACTRIM,SEPT1 TABLET PO; +CARBAMAZEPINE100 MG PO; +SYNTHROID75 MCG PO; +TUMS ULTRA1000 MG PO
[2017-03-15 01:01] LABS: HEMOGLOBIN 12.6 G/DL (11.9-15.5); MCH 32.1 PG (29.0-34.0); MCHC 33.2 G/DL (30.0-36.0); MCV 96.9 FL (83-99); PLATELET COUNT 166 K/uL (156-360); RBC DIS.WIDTH-CV 14.1 % (11.8-14.6); RBC DIS.WIDTH-SD 50.3 % (39-53); RED BLOOD COUNT 3.92 M/uL (3.80-5.20); WHITE BLOOD COUNT 8.3 K/uL (4.1-10.2)
[2017-03-15 01:13] LABS: ALBUMIN 4.4 g/dL (3.2-4.8); CHLORIDE 110 mEq/L (99-109); POTASSIUM 3.7 mEq/L (3.7-5.4); SODIUM 145 mEq/L (136-147)
[2017-03-15 01:15] LABS: GLUCOSE 102 mg/dL (70-99); TOTAL PROTEIN 7.5 g/dL (6.4-8.3)
[2017-03-15 01:17] LABS: TOTAL BILIRUBIN 0.1 mg/dL (0.0-1.0)
[2017-03-15 01:18] LABS: SERUM ETHYL ALCOHOL 203 mg/dL; TROP-I INTERPRETATION NEGATIVE; TROPONIN-I < 0.01 ng/mL (0.0-0.30)
[2017-03-15 01:19] LABS: ALKALINE PHOSPHATASE 84 IU/L (3-129); CREATININE 0.8 mg/dL (0.6-1.3); GFR ESTIMATE (CALCULATED) > 59 mL/min/
[2017-03-15 01:20] LABS: AST (GOT) 26 IU/L (2-34); UREA NITROGEN (BUN) 14 mg/dL (9-23)
[2017-03-15 01:22] LABS: ALT (GPT) 14 IU/L (3-49)
[2017-03-15 01:27] LABS: QUANTITATIVE HCG < 4.0 MIU/ML
[2017-03-15 01:54] LABS: AMPHETAMINE NEGATIVE (500 ng/mL); BARBITURATES PRESUMPTIVE POSITIVE (200 ng/mL); BENZODIAZEPINES NEGATIVE (150 ng/mL); BUPRENORPHINE NEGATIVE (10 ng/mL); COCAINE NEGATIVE (150 ng/mL); METHADONE NEGATIVE (200 ng/mL); METHAMPHETAMINE NEGATIVE (500 ng/mL); OPIATES (MORPHINE) NEGATIVE (100 ng/mL); OXYCODONE NEGATIVE (100 ng/mL); PHENCYCLIDINE NEGATIVE (25 ng/mL); PROPOXYPHENE NEGATIVE (300 ng/mL); THC CANNABINOIDS NEGATIVE (50 ng/mL); TRICYCLIC ANTIDEPRESSANTS NEGATIVE (300 ng/mL)
[2017-03-15 03:13] LABS: APPEARANCE CLEAR ((CLEAR)); BILIRUBIN NEGATIVE; BLOOD SMALL; COLOR STRAW ((YELLOW)); GLUCOSE (STRIP) NEGATIVE; KETONES NEGATIVE; LEUKOCYTES NEGATIVE; NITRITE NEGATIVE; PROTEIN (STRIP) NEGATIVE; SPECIFIC GRAVITY 1.004 (1.000-1.030); UROBILINOGEN 0.2 MG/DL (0.2-1.0)
[2017-03-15 03:18] LABS: BACTERIA RARE /HPF; EPITHELIAL CELLS 1+ /HPF; MUCUS TRACE /LPF; RED BLOOD CELLS 0-5 /HPF (0-5); UCUL ADDED? NO; WHITE BLOOD CELLS 0-5 /HPF (0-5)
[2017-03-15 03:40] LABS: TROP-I INTERPRETATION NEGATIVE; TROPONIN-I < 0.01 ng/mL (0.0-0.30)
[2017-03-15 14:27] VITALS: BP 142/73
[2017-03-15] MEDS ORDERED: NEURONTIN300 MG PO (14:52)
[2017-03-15] MEDS ORDERED: SEROQUEL200 MG PO (14:53)
[2017-03-15] MEDS ORDERED: XANAX XR2 MG PO (14:54)
[2017-03-15 14:56] VITALS: BP 142/73
[2017-03-15 15:45] VITALS: BP 119/79
[2017-03-16 09:21] VITALS: BP 133/84
[2017-03-16 15:10] VITALS: BP 129/79
[2017-03-17 08:07] VITALS: BP 117/73
[2017-03-17 14:58] VITALS: BP 118/73
[2017-03-18 07:55] VITALS: BP 124/59
[2017-03-18 16:02] VITALS: BP 128/62
[2017-03-19 07:38] VITALS: BP 123/72
[2017-03-19 10:46] LABS: CARBAMAZEPINE (TEGRETOL) 4.7 MCG/ML (4.0-12.0)
[2017-03-19 11:08] LABS: FOLIC ACID (FOLATE) 5.5 NG/ML (5.0-22.0)
[2017-03-19 15:23] VITALS: BP 129/69
[2017-03-20 07:48] VITALS: BP 124/88
[2017-03-20 15:35] VITALS: BP 132/71
[2017-03-21 07:39] VITALS: BP 121/74
[2017-03-21] MEDS ORDERED: QUETIAPINE FUM300 M1 PO (09:00)
[2017-03-21] MEDS ORDERED: TUMS ULTRA1000 MG PO (09:00)
[2017-03-21] MEDS ORDERED: FLUOXETINE HCL20 MG PO ×2 (09:00→09:04)
== END 2017-03-21 11:10 | disposition home or self-care (01) | DRG 885 ==
LOC: EME 00:04 → 1WEST 09:30 → EDOF 09:30 → ENRESERV 14:20 → 1WEST 14:32
PROVIDERS: Emergency Medicine; Psychiatry & Neurology Psychiatry
DX: F33.2 Major depressive disorder, recurrent severe without psychotic features (principal); R45.851 Suicidal ideations; F41.1 Generalized anxiety disorder; F10.229 Alcohol dependence with intoxication, unspecified; Y90.7 Blood alcohol level of 200-239 mg/100 ml; F13.10 Sedative, hypnotic or anxiolytic abuse, uncomplicated; F43.10 Post-traumatic stress disorder, unspecified; F43.23 Adjustment disorder with mixed anxiety and depressed mood; G40.909 Epilepsy, unspecified, not intractable, without status epilepticus; I10 Essential (primary) hypertension; J44.9 Chronic obstructive pulmonary disease, unspecified; F17.200 Nicotine dependence, unspecified, uncomplicated; Z59.0 Homelessness; Z87.820 Personal history of traumatic brain injury
CPT/HCPCS: 71045; 73130; 80053; 80156; 81003; 82607; 82746; 84439; 84443; 84484; 84702; 84999; 85027; 90839; 93005; 97150 GO; 97165 GO; 99281; 99285; G0480

== ENCOUNTER 2017-03-21 22:10 | Inpatient (IN) | payer OTHER ==
[~2017-03-21] VITALS: Ht 152.4 cm; Wt 74.9 kg
[~2017-03-21 22:10] MED LIST changes: +NEURONTIN300 MG PO; +QUETIAPINE FUM300 M1 PO; +XANAX XR2 MG PO
[2017-03-21 23:16] LABS: AMPHETAMINE NEGATIVE (500 ng/mL); BARBITURATES NEGATIVE (200 ng/mL); BENZODIAZEPINES PRESUMPTIVE POSITIVE (150 ng/mL); BUPRENORPHINE NEGATIVE (10 ng/mL); COCAINE NEGATIVE (150 ng/mL); METHADONE NEGATIVE (200 ng/mL); METHAMPHETAMINE NEGATIVE (500 ng/mL); OPIATES (MORPHINE) NEGATIVE (100 ng/mL); OXYCODONE NEGATIVE (100 ng/mL); PHENCYCLIDINE NEGATIVE (25 ng/mL); PROPOXYPHENE NEGATIVE (300 ng/mL); THC CANNABINOIDS NEGATIVE (50 ng/mL); TRICYCLIC ANTIDEPRESSANTS NEGATIVE (300 ng/mL)
[2017-03-21 23:17] LABS: HEMATOCRIT 37.4 % (36.0-46.0); HEMOGLOBIN 12.9 G/DL (11.9-15.5); MCH 32.7 PG (29.0-34.0); MCHC 34.5 G/DL (30.0-36.0); MCV 94.9 FL (83-99); PLATELET COUNT 198 K/uL (156-360); RBC DIS.WIDTH-CV 13.7 % (11.8-14.6); RBC DIS.WIDTH-SD 47.7 % (39-53); RED BLOOD COUNT 3.94 M/uL (3.80-5.20); WHITE BLOOD COUNT 8.9 K/uL (4.1-10.2)
[2017-03-21 23:25] LABS: ALBUMIN 4.3 g/dL (3.2-4.8); CHLORIDE 98 mEq/L (99-109); POTASSIUM 3.5 mEq/L (3.7-5.4); SODIUM 126 mEq/L (136-147)
[2017-03-21 23:27] LABS: GLUCOSE 127 mg/dL (70-99); TOTAL PROTEIN 7.6 g/dL (6.4-8.3)
[2017-03-21 23:30] LABS: SERUM ETHYL ALCOHOL 239 mg/dL
[2017-03-21 23:31] LABS: CREATININE 0.8 mg/dL (0.6-1.3); GFR ESTIMATE (CALCULATED) > 59 mL/min/; TOTAL BILIRUBIN 0.2 mg/dL (0.0-1.0)
[2017-03-21 23:32] LABS: ALKALINE PHOSPHATASE 87 IU/L (3-129)
[2017-03-21 23:33] LABS: AST (GOT) 39 IU/L (2-34); UREA NITROGEN (BUN) 16 mg/dL (9-23)
[2017-03-21 23:34] LABS: SALICYLATE < 5.0 MG/DL (15-30)
[2017-03-21 23:35] LABS: ACETAMINOPHEN (TYLENOL) < 10 mcg/mL (10-30); ALT (GPT) 21 IU/L (3-49); LIPASE 26 U/L (1.0-51.0)
[2017-03-21 23:41] LABS: QUANTITATIVE HCG < 4.0 MIU/ML
[2017-03-22 01:19] LABS: BENZODIAZEPINES, URINE SCREEN Negative (200 ng/mL)
[2017-03-22 01:45] LABS: CHLORIDE 104 mEq/L (99-109)
[2017-03-22 01:46] LABS: SODIUM 142 mEq/L (136-147)
[2017-03-22 01:47] LABS: GLUCOSE 156 mg/dL (70-99)
[2017-03-22 01:51] LABS: CREATININE 0.8 mg/dL (0.6-1.3); GFR ESTIMATE (CALCULATED) > 59 mL/min/
[2017-03-22 01:52] LABS: UREA NITROGEN (BUN) 16 mg/dL (9-23)
[2017-03-22 07:41] VITALS: BP 92/55
[2017-03-22 15:27] VITALS: BP 149/71
[2017-03-23 07:32] VITALS: BP 134/76
[2017-03-23 15:32] VITALS: BP 123/68
[2017-03-24 07:40] VITALS: BP 135/68
[2017-03-24 15:37] VITALS: BP 116/66
[2017-03-25 07:56] VITALS: BP 134/62
== END 2017-03-25 12:30 | disposition home or self-care (01) | DRG 880 ==
LOC: EME → EDBD 22:10 → 1WEST 03-22 05:48 → EDOF 03-22 05:48 → ENRESERV 03-22 06:11 → CANRESERV 03-22 06:11 → ENRESERV 03-22 07:10 → ENRESERVTM 03-22 07:15 → 1WEST 03-22 07:25
PROVIDERS: Emergency Medicine
DX: F41.1 Generalized anxiety disorder (principal); F31.9 Bipolar disorder, unspecified; F10.129 Alcohol abuse with intoxication, unspecified; Y90.7 Blood alcohol level of 200-239 mg/100 ml; F13.19 Sedative, hypnotic or anxiolytic abuse with unspecified sedative, hypnotic or anxiolytic-induced disorder; T42.4X2A Poisoning by benzodiazepines, intentional self-harm, initial encounter; T51.0X2A Toxic effect of ethanol, intentional self-harm, initial encounter; T76.21XA Adult sexual abuse, suspected, initial encounter; E87.1 Hypo-osmolality and hyponatremia; F17.200 Nicotine dependence, unspecified, uncomplicated; G40.909 Epilepsy, unspecified, not intractable, without status epilepticus; I10 Essential (primary) hypertension; J44.9 Chronic obstructive pulmonary disease, unspecified; G43.909 Migraine, unspecified, not intractable, without status migrainosus; Z91.14 Patient's other noncompliance with medication regimen; Z91.5 Personal history of self-harm; Z88.0 Allergy status to penicillin; Z88.5 Allergy status to narcotic agent; Z76.5 Malingerer [conscious simulation]
CPT/HCPCS: 71046; 80048; 80053; 83690; 84702; 84999; 85027; 90837; 93005; 97150 GO; 97165 GO; 99281; 99285; G0480; J2405; J7030; Q0177

== ENCOUNTER 2017-03-26 20:57 | Emergency (ER) | payer OTHER ==
[~2017-03-26] VITALS: Ht 152.4 cm; Wt 73.8 kg
[2017-03-26 21:57] LABS: HEMATOCRIT 40.5 % (36.0-46.0); HEMOGLOBIN 13.8 G/DL (11.9-15.5); MCH 32.5 PG (29.0-34.0); MCHC 34.1 G/DL (30.0-36.0); MCV 95.3 FL (83-99); PLATELET COUNT 247 K/uL (156-360); RBC DIS.WIDTH-CV 13.7 % (11.8-14.6); RBC DIS.WIDTH-SD 48.3 % (39-53); RED BLOOD COUNT 4.25 M/uL (3.80-5.20); WHITE BLOOD COUNT 9.5 K/uL (4.1-10.2)
[2017-03-26 22:11] LABS: CHLORIDE 109 mEq/L (99-109); SODIUM 144 mEq/L (136-147)
[2017-03-26 22:13] LABS: GLUCOSE 91 mg/dL (70-99)
[2017-03-26 22:17] LABS: CREATININE 0.8 mg/dL (0.6-1.3); GFR ESTIMATE (CALCULATED) > 59 mL/min/
[2017-03-26 22:18] LABS: UREA NITROGEN (BUN) 18 mg/dL (9-23)
[2017-03-26 22:24] LABS: TROP-I INTERPRETATION NEGATIVE; TROPONIN-I < 0.01 ng/mL (0.0-0.30)
[2017-03-26 23:16] VITALS: BP 142/86
== END 2017-03-26 23:16 | disposition home or self-care (01) ==
LOC: EME 20:57
PROVIDERS: Emergency Medicine
DX: R07.9 Chest pain, unspecified (principal); F10.129 Alcohol abuse with intoxication, unspecified; R56.9 Unspecified convulsions; F17.200 Nicotine dependence, unspecified, uncomplicated; Z88.5 Allergy status to narcotic agent; Z88.0 Allergy status to penicillin
CPT/HCPCS: 80048; 84484; 85027; 93005; 99281; 99285

== ENCOUNTER 2017-03-26 23:32 | Emergency (ER) | payer OTHER ==
[~2017-03-26] VITALS: Ht 152.4 cm; Wt 71.8 kg
[2017-03-27 01:15] VITALS: BP 120/74
== END 2017-03-27 01:15 | disposition home or self-care (01) ==
LOC: EME 23:32
PROC: 2W3DX1Z Immobilization of Left Lower Arm using Splint (ICD-10-PCS; principal; 2017-03-26)
DX: S63.502A Unspecified sprain of left wrist, initial encounter (principal); W19.XXXA Unspecified fall, initial encounter; F17.200 Nicotine dependence, unspecified, uncomplicated; Z88.0 Allergy status to penicillin; Z88.5 Allergy status to narcotic agent
CPT/HCPCS: 73130; 99281; 99283

== ENCOUNTER 2017-03-27 07:33 | Emergency (ER) | payer OTHER ==
[~2017-03-27] VITALS: Ht 152.4 cm; Wt 72.4 kg
[2017-03-27 08:30] LABS: HEMATOCRIT 39.4 % (36.0-46.0); HEMOGLOBIN 13.2 G/DL (11.9-15.5); MCH 32.4 PG (29.0-34.0); MCHC 33.5 G/DL (30.0-36.0); MCV 96.8 FL (83-99); PLATELET COUNT 240 K/uL (156-360); RBC DIS.WIDTH-CV 13.6 % (11.8-14.6); RBC DIS.WIDTH-SD 48.6 % (39-53); RED BLOOD COUNT 4.07 M/uL (3.80-5.20); WHITE BLOOD COUNT 12.4 K/uL (4.1-10.2)
[2017-03-27 08:42] LABS: CHLORIDE 106 mEq/L (99-109); SODIUM 142 mEq/L (136-147)
[2017-03-27 08:44] LABS: GLUCOSE 90 mg/dL (70-99)
[2017-03-27 08:47] LABS: SERUM ETHYL ALCOHOL < 10 mg/dL
[2017-03-27 08:48] LABS: CREATININE 0.8 mg/dL (0.6-1.3); GFR ESTIMATE (CALCULATED) > 59 mL/min/
[2017-03-27 08:49] LABS: UREA NITROGEN (BUN) 27 mg/dL (9-23)
[2017-03-27 08:52] LABS: TROP-I INTERPRETATION NEGATIVE; TROPONIN-I < 0.01 ng/mL (0.0-0.30)
[2017-03-27 08:56] LABS: QUANTITATIVE HCG < 4.0 MIU/ML
[2017-03-27 11:16] VITALS: BP 145/66
== END 2017-03-27 11:16 | disposition home or self-care (01) ==
LOC: EME 07:33
PROVIDERS: Nurse Practitioner Family
DX: F43.9 Reaction to severe stress, unspecified (principal); F10.99 Alcohol use, unspecified with unspecified alcohol-induced disorder; F32.9 Major depressive disorder, single episode, unspecified; R07.9 Chest pain, unspecified; Z91.81 History of falling; Z82.49 Family history of ischemic heart disease and other diseases of the circulatory system; F17.200 Nicotine dependence, unspecified, uncomplicated; Z59.0 Homelessness
CPT/HCPCS: 71046; 80048; 84484; 84702; 85027; 90839; 93005; 99281; 99284; G0480